=== PATIENT | male | born 1975 | race Caucasian/White ===

== ENCOUNTER 2024-06-07 09:52 | Emergency (ER) | payer BC, SELFPAY ==
[2024-06-07] VITALS (8 sets, daily range): BP systolic 126–142; BP diastolic 85–106; PULSE 68–73; BMI 22.6
[2024-06-07 10:33] LABS: % Basophils 0.7 % (0-2); % Eosinophils 0.8 % (0-6); % Immature Granulocytes 0.3 % (0-0.5); % Lymphocytes 28.2 % (20.5-51.1); % Monocytes 8.3 % (1.7-9.3); % Neutrophils 61.7 % (42.2-75.2); Absolute Eosinophils 0.1 10^3/uL (0-0.7); Absolute Lymphocytes 1.7 10^3/uL (1.2-3.4); Absolute Monocytes 0.5 10^3/uL (0.1-0.6); Absolute Neutrophils 3.7 10^3/uL (1.4-6.5); Hematocrit 44.5 % (39.0-52.0); Hemoglobin 15.3 g/dL (13.0-18.0); Mean Corp Hgb Conc. 34.4 g/dL (33.0-37.0); Mean Corpuscular Hgb 31.2 pg (27.0-31.0); Mean Corpuscular Volume 90.6 fL (80.0-94.0); Mean Platelet Volume 9.1 fL (7.4-10.4); Nucleated Red Blood Cells % 0 % (-); Platelet Count 299 10^3/uL (130-400); Red Blood Cell Count 4.91 10^6/uL (4.70-6.10); Red Cell Dist. Width 12.9 % (11.5-14.5)
[2024-06-07 10:49] LABS: ALT (SGPT) 14 U/L (0-50); AST (SGOT) 21 U/L (17-59); Albumin 4.4 g/dl (3.5-5.0); Alkaline Phosphatase 48 U/L (38-126); Blood Urea Nitrogen 14 mg/dl (9-20); Calcium 9.6 mg/dl (8.4-10.2); Carbon Dioxide 27 mmol/L (22-30); Chloride 106 mmol/L (98-107); Glucose 102 mg/dl (70-99); Potassium 4.3 mmol/L (3.5-5.1); Sodium 138 mmol/L (135-145); Total Bilirubin 0.9 mg/dl (0.2-1.3); Total Protein 7.2 g/dl (6.3-8.2); eGFR > 60.00
[2024-06-07 10:59] LABS: Troponin I < 0.012 ng/ml
--- NOTE | 2024-06-07 12:10 | ED.GENMED ---
History of Present Illness
<Vielka Hu PA-C - Last Filed: 06/07/24 20:30>
General
Chief Complaint: Dizziness
Source: patient
Exam Limitations: none
Time Seen by Provider: 06/07/24 10:55
Nursing documentation reviewed up to this point in time: agreed with
History of Present Illness
History of Present Illness:
Patient is a 49-year-old male with history of hypothyroid presenting to the emergency department with multiple complaints today. Generally 'unwell over the past few months. He has had 2 syncopal episodes, one occurring in January and 1 occurring
more recently in the middle of May while on airplane. These both occurred while he was sitting down. He states that yesterday he felt extremely lightheaded and as if he was going to pass out although he never did. He also reports intermittent
numbness to his entire left side of his body with a tingling sensation.
Patient denies any exertional syncopal events. No chest pain or shortness of breath. He denies any fever, chills, or headache. He denies any notable weakness. Patient denies any ataxia, dysarthria, or confusion.
He did recently have lab work obtained by PCP where his triglycerides were found to be elevated. He initially was scheduled for a follow-up today although came to the emergency department instead.
Patient does report that he was bit by a tick a few months ago although did take prophylactic antibiotics at that time. No recent known bug bite or rash.
Past History
<Vielka Hu PA-C - Last Filed: 06/07/24 20:30>
Past History
ED Past Medical History: GERD, HTN and Hypothyroidism
Social History
Tobacco: Former smoker
Living: with family
Review of Systems
<Vielka Hu PA-C - Last Filed: 06/07/24 20:30>
Review of Systems
Allergies reviewed?: Yes
All Other Systems: ROS reviewed and negative except as documented in HPI and ROS
Phy Exam
<Vielka Hu PA-C - Last Filed: 06/07/24 20:30>
Physical Exam
Physical Exam:
Vitals: Hypertensive, otherwise vital signs stable. Afebrile.
General: Patient is well appearing, no acute distress. Nontoxic appearing
Skin: Warm and dry, no rashes or lesions
Head: Normocephalic, atraumatic
Eyes: Sclera nonicteric. EOMs intact. Pupils equal round and reactive to light bilaterally. No nystagmus.
Throat: Protecting airway
Neck: Normal ROM, no cervical spine tenderness, no meningismus
Cardiac: Regular rate and rhythm, no murmurs. 2+ radial pulses bilaterally.
Pulm: Normal respiratory effort, no wheezes, rales, rhonchi heard on exam.
Abdomen: Nondistended. No abdominal tenderness.
Extremities: No evidence of cyanosis or edema. Strength 5/5 in bilateral upper and lower extremities. Sensation intact bilaterally.
Neuro: AAOx3. CN II-XII grossly intact on examination. No focal neurologic deficits. No facial droop or asymmetry
Psychiatric: Normal affect.
Scores
<Vielka Hu PA-C - Last Filed: 06/07/24 20:30>
PERC Rule Criteria
Age <50 years: Yes
HR <100 bpm: Yes
Room air oxygen sat >94%: Yes
History of DVT or PE: No
Recent trauma or surgery: No
Hemoptysis: No
Exogenous estrogen: No
Clinical signs suggestive of DVT: No
: No
Considered low risk for PE: Yes
PERC Score: 0
PE can be excluded by PERC: Yes
Course
<Vielka Hu PA-C - Last Filed: 06/07/24 20:30>
Orders/Labs/Results
Orders:
Orders
05/01/25
Electrocardiogram (*1) Stat
Reason for Study: Chest Pain
Comment: DONE
06/07/24 09:53
EKG with chest pain [ECG as needed] As Directed
ECG as needed for:: Chest Pain
06/07/24 10:06
CT Head W/o Iv Contrast Urgent
Comment:
Reason For Exam: dizziness, L sided numbness
06/07/24 10:18
Complete Blood Count/With Diff Urgent
Comprehensive Metabolic Panel Urgent
Magnesium Urgent
Comment: ADD ON
Monotest Urgent
Comment: ADD ON
TSH Reflex To Free T4 Urgent
Comment: ADD ON
Troponin I Urgent
06/07/24 12:08
Orthostatic VS- Treatment ONCE
0.9% Sodium Chloride 1000 ml [Nss] 1,000 ml IV BOLUS
06/07/24 12:09
Add On- LAB Urgent
Tests Added?: magnesium, TSH w/ reflex to T4, monospot
06/07/24 12:23
COVID-19 Antigen Urgent
Source: Nasal Swab
Lyme Progressive Urgent
Influenza A+B Rapid Molecular Urgent
JOSH Source: Nasal Swab
Specimen Description:
Abnormal Lab Results
06/07/24
10:18
MCH 31.2 H pg
(27.0-31.0)
Glucose 102 H mg/dl
(70-99)
06/07/24 10:18
06/07/24 10:18
Vital Signs
Initial and Last Documented VS:
Initial Vital Signs
Temp Pulse Resp BP Pulse Ox
98.6 F 79 16 130/94 96
06/07/24 10:01 06/07/24 10:01 06/07/24 10:01 06/07/24 10:01 06/07/24 10:01
Last Documented Vital Signs
Temp Pulse Resp BP Pulse Ox
98.6 F 70 16 142/104 98
06/07/24 10:01 06/07/24 14:00 06/07/24 12:15 06/07/24 13:30 06/07/24 14:00
Caitlinlt;Braden FerDinesh Rhodes, DO - Last Filed: 06/07/24 14:26>
Orders/Labs/Results
Orders:
Orders
06/07/24
Electrocardiogram (*1) Stat
Reason for Study: Chest Pain
Comment: DONE
06/07/24 09:53
EKG with chest pain [ECG as needed] As Directed
ECG as needed for:: Chest Pain
06/07/24 10:06
CT Head W/o Iv Contrast Urgent
Comment:
Reason For Exam: dizziness, L sided numbness
06/07/24 10:18
Complete Blood Count/With Diff Urgent
Comprehensive Metabolic Panel Urgent
Magnesium Urgent
Comment: ADD ON
Monotest Urgent
Comment: ADD ON
TSH Reflex To Free T4 Urgent
Comment: ADD ON
Troponin I Urgent
06/07/24 12:08
Orthostatic VS- Treatment ONCE
0.9% Sodium Chloride 1000 ml [Nss] 1,000 ml IV BOLUS
06/07/24 12:09
Add On- LAB Urgent
Tests Added?: magnesium, TSH w/ reflex to T4, monospot
06/07/24 12:23
COVID-19 Antigen Urgent
Source: Nasal Swab
Lyme Progressive Urgent
Influenza A+B Rapid Molecular Urgent
JOSH Source: Nasal Swab
Specimen Description:
Abnormal Lab Results
06/07/24
10:18
MCH 31.2 H pg
(27.0-31.0)
Glucose 102 H mg/dl
(70-99)
06/07/24 10:18
06/07/24 10:18
Vital Signs
Initial and Last Documented VS:
Initial Vital Signs
Temp Pulse Resp BP Pulse Ox
98.6 F 79 16 130/94 96
06/07/24 10:01 06/07/24 10:01 06/07/24 10:01 06/07/24 10:01 06/07/24 10:01
Last Documented Vital Signs
Temp Pulse Resp BP Pulse Ox
98.6 F 70 16 142/104 98
06/07/24 10:01 06/07/24 14:00 06/07/24 12:15 06/07/24 13:30 06/07/24 14:00
<Vielka Hu PA-C - Last Filed: 06/07/24 20:30>
MDM/Problems Addressed
Differential Diagnosis Includes:
Not limited to: Viral illness, electrolyte abnormality, tickborne illness, hypothyroid, cardiac arrhythmia, CVA, etc.
MDM/Problems Addressed:
49-year-old male presenting with intermittent lightheadedness and generally feeling 'unwell' over the past few months. He has had 2 brief syncopal events over the past 2 months while flying. No exertional or pleuritic symptoms. No chest pain or
shortness of breath. No headache or ataxia. Patient hypertensive with otherwise stable vital signs. Physical exam as above. Patient well-appearing, no apparent distress. Cardio/pulmonary assessment unremarkable. No clinical evidence of DVT on
exam. Patient neurologically intact with no gross deficits. Workup in ED unremarkable including laboratory analysis, troponin, TSH. Viral swabs negative. EKG without acute ischemic changes or arrhythmia. Head CT without acute findings. Patient
ambulating without difficulty. Ultimately�etiology of today's symptoms unclear. Lyme test pending. Do not suspect CVA or central process. Patient PERC negative with no symptoms suggestive of pulmonary embolism. Symptoms not consistent with
seizure activity. Patient has had no evidence of arrhythmia on cardiac monitoring in ED. Workup in ED reassuring. Feel patient stable for discharge home at this point although will recommend close follow-up with cardiology for Holter
monitoring/further evaluation. He has appointment scheduled with his occupancy specialist in a few weeks. Patient aware of high blood pressure in emergency department will follow-up with PCP/cardiology to consider possibly initiating antihypertensive
therapy. Strict return precautions discussed. Patient seen with attending physician.
Chronic conditions affecting care:
Hypothyroid
Acute Exacerbation and/or Progression of Chronic Illness:
N/A
<Vielka Hu PA-C - Last Filed: 06/07/24 20:30>
*Radiology
Radiology exam reviewed: radiology read reviewed (Head CT without acute abnormalities.)
*Pulse Oximetry
Patient hypoxic: no
*EKG
Interpreted by ED Provider?: Yes
EKG Intrepretation Date: 06/07/24
Interpretation: normal
Comparison EKG: no changes
Heart Rate: 72
Rate: normal
Rhythm: sinus
Donaldson: normal axis
Interval: normal QT interval
QRS Pattern: normal QRS
Ischemia: no ischemia
*Life Skills Trainer Interpretation
Rate: normal
Interpretation: normal
Heart Rate: 68
Rhythm: sinus
*Critical Care Note
Total Time (30-74mins, 75-104mins- exclusive of procedures): Not Applicable
ED Attending Note
<Vielka Hu PA-C - Last Filed: 06/07/24 20:30>
-
Portions of this chart may have been created with voice recognition software.� Occasional wrong word or��sound alike� substitutions may have occurred due to the inherent limitations of voice recognition software.
<Braden Rhodes DO - Last Filed: 06/07/24 14:26>
ED Attending Note
Patient seen and examined by attending physician: Yes
I performed the substantive portion of visit, reviewed & personally made and approve the management plan that is documented in note by myself or LATRICE.: Yes
ED Attending Note:
49-year-old gentleman presents to the emergency room for evaluation because he has been feeling unwell for some time. Patient had a syncopal episode on May 23 while traveling on a plane. Episode lasted seconds. He was able to return to the
baseline mental status very rapidly. He states he did not feel back to himself completely for the rest of the day but was never confused. He never had any incontinence or tongue injuries etc. Patient had a previous episode similar to this in
January also while on a flight. The patient decided to come to the emergency room today because he had an episode yesterday where he began to feel like he was going to pass out again. He did not actually but he felt like his left side was colder
than the other side. He denies actual numbness or lack of feeling. Denies ever having any focal weakness. Patient is sure he is hydrating well. He denies any chest pain, palpitations or shortness of breath associated with these events. He takes
Synthroid on a daily basis. He was prescribed a antihypertensive but he only took it 2 or 3 times.
General: Awake, Alert, Oriented X3. No acute distress.
Vitals: unremarkable
Head: Atraumatic
Eyes: Pupils equal, EOMI
Throat: Airway intact, no exudates
Neck: Trachea midline
Lungs: Clear and equal b/l
Heart: Regular rate, no murmurs
Abd: Soft, Nontender, No pulsatile mass
Neuro: Cranial nerves intact, muscle strength equal bilaterally, sensation intact
Skin: Warm, dry, no rash
Extremities: pulses equal b/l, no edema
EKG: Normal sinus rhythm at 72. Normal intervals. No ischemic changes.
CT of the head shows no acute abnormalities.
Labs are all very reassuring.
Source of patient's episodes is unclear. Differential includes dysrhythmia, vasovagal or orthostasis. Seizure disorder right gas is also a possibility though seems much less likely. Patient has no symptoms to suggest a PE. At this point I feel
the next steps for the patient are to follow-up with cardiology for Holter monitor to evaluate for any cardiac dysrhythmia. They can also evaluate the patient for any autonomic dysfunction. Patient also should follow-up with his primary care
provider. No indication for hospitalization at this time.
Discharge Plan
Departure
Patient Disposition: Home (Routine Discharge)
Date of Disposition: 06/07/24
Time of Disposition: 14:36
Patient with high blood pressure during this ER visit?: Yes
Condition: Good
Covid-19: Negative COVID-19
Discharge Problem:
Lightheadedness, Syncope
Instructions: Near Fainting (DC), BLOOD PRESSURE
Referrals:
Carter Nieto MD [Family Provider] -
Shae Blanco DO [Active] - Next open appointment
Activity Restrictions/Additional Instructions:
RETURN TO THE EMERGENCY DEPARTMENT WITH ANY FEVERS, CHEST PAIN, SHORTNESS OF BREATH, PERSISTENT DIZZINESS/LIGHTHEADEDNESS, WORSENING IN CURRENT SYMPTOMS, OR ANY OTHER CONCERNS
- As discussed�your workup in the emergency department showed no acute abnormalities. Your Lyme test is pending�will contact if this is positive.
- We are unsure the exact etiology of your symptoms today. It is important you stay well-hydrated. You should follow-up with cardiology for further evaluation/management. You may require further testing or cardiac monitoring.
Monitor symptoms closely and return to the emergency department with any acute worsening/new symptoms or any other concerns
Interventions
Interventions:
*Risk Screen - Suicide Last Done: 06/07/24 10:01
*General Assessment Last Done: 06/07/24 10:01
*Neglect/Abuse Screening Last Done: 06/07/24 10:01
*ED COVID-19 Vaccine History Last Done: 06/07/24 10:01
*Nursing Disposition Last Done: 06/07/24 14:50
ED- Neurological Assessment Last Done: 06/07/24 11:00
ED- Cardiac Assessment Last Done: 06/07/24 11:00
ED Swallowing Screen Last Done: 06/07/24 14:00
Discharge Date and Time
Discharge Date/Time: 06/07/24 14:50
Print Language: IRISH
[2024-06-07] MEDS: NSS 1000 IV (12:23)
[2024-06-07 12:50] LABS: Magnesium 2.2 mg/dl (1.6-2.3)
[2024-06-07 13:01] LABS: COVID-19 Antigen Negative (Negative)
[2024-06-07 13:05] LABS: Monotest Negative (Negative)
[2024-06-07 13:20] LABS: TSH Reflex To Free T4 3.14 uIU/ml (0.47-4.68)
== END 2024-06-07 14:50 | disposition home or self-care (01) ==
LOC: EMR 09:52
PROVIDERS: Emergency Medicine; Physician Assistant; EMERGENCY PHYSICIAN Emergency Medicine; FAMILY PHYSICIAN Internal Medicine
DX: R55 Syncope and collapse (principal); R42 Dizziness and giddiness; E03.9 Hypothyroidism, unspecified; I10 Essential (primary) hypertension; Z87.891 Personal history of nicotine dependence; Z11.52 Encounter for screening for COVID-19
CPT/HCPCS: 96360; 99284; 70450; 80053; 83735; 84443; 84484; 85025; 86308; 86618; 87502; 87811; 93005